=== PATIENT | female | born 1960 | race Caucasian/White ===

== ENCOUNTER 2016-11-10 15:46 | Emergency (ER) | payer BC ==
--- NOTE | ~2016-11-10 | ER ---
PATIENT'S NAME: YANETH PAVON [facility] AGE: 55 Y [address] ROOM: [place] [address] LOCATION: ED ADMIT DATE: 11/10/2016 ER/Outpatient Report DISCHARGE DATE: 11/10/2016 FAMILY PHYSICIAN: Fernando Culver MD ATTENDING PHYSICIAN: Coretta Zaidi Time of arrival: 1546. Time seen: 1630. IDENTIFICATION: A 55-year-old female. CHIEF COMPLAINT: Nausea and dizziness. HISTORY OF PRESENT ILLNESS: The patient was at [facility] and she felt some cramping in her abdomen, went to the bathroom, had diarrhea then when she got home she had another episode and was on the toilet and had a syncopal episode. She did hit her head, left parietal scalp and her glasses cut the bridge of her nose. She is complaining little bit of a headache and just feeling kind of dizzy and still little nausea and discomfort in her abdomen. She has had no vomiting. Tetanus is current within three years PAST MEDICAL HISTORY: ALLERGIES: TO ERYTHROMYCIN. CURRENT MEDICATIONS: 1. Turmeric. 2. Ospina extract. 3. Fish oil. 4. Flaxseed oil. 5. Vitamin D. MEDICAL PROBLEMS: Osteoarthritis followed by Dr. De Dios in [place]. SOCIAL HISTORY: The patient lives here in [place], works at a bakery. Tobacco use, denies. Alcohol use, rarely. Drug use, denies. REVIEW OF SYSTEMS: All systems reviewed and negative other than what is noted in the HPI. She is PATIENT'S NAME: YANETH PAVON [facility] AGE: 55 Y [address] ROOM: [place] [address] LOCATION: ED ADMIT DATE: 11/10/2016 ER/Outpatient Report DISCHARGE DATE: 11/10/2016 FAMILY PHYSICIAN: Fernando Culver MD ATTENDING PHYSICIAN: Coretta Zaidi no longer having periods. PAST SURGICAL HISTORY: Cholecystectomy and section. FAMILY HISTORY: No family history of premature coronary artery disease. No family history of sudden cardiac . PHYSICAL EXAMINATION: VITAL SIGNS: Height 5 feet 1 inch and weight 85.4 kg. Blood pressure 140/77, pulse 69, respirations 16, temperature 96.6, and saturations 99%. GENERAL: A 55-year-old female, in no acute distress. HEENT: Head: Normocephalic. Ears: TMs translucent both ears. Eyes: Pupils equal and reactive to light and accommodation. Extraocular movements intact. Nose: Mucosa pink. No lesions. Mouth: No lesions. She has no malocclusion of her teeth. Oropharynx is benign. Mucous membranes are moist. NECK: Supple. No lymphadenopathy. She does have a little bit of tenderness to her cervical spine. She has a palpable hematoma to her left parietal scalp. She has a superficial laceration across the bridge of her nose, not requiring any sutures. LUNGS: Clear to auscultation. HEART: Regular rate and rhythm. No murmur, rub, or gallop. ABDOMEN: Bowel sounds present. Soft, nondistended, minimally tender to deep palpation. No rebound or guarding. SKIN: [place], warm, and dry. No lesions or rashes noted. The patient has some old bruises on her lower extremities and then one on her right upper extremity. She said those are not from today and then the superficial laceration on the bridge of her nose. NEURO: The patient is alert and oriented x4. Cranial nerves 2 through 12 grossly intact. Motor strength 5/5 throughout. Sensation is intact to light touch. EXTREMITIES: She just recently had epidural steroid injections of both of her knees and her thumbs per Dr. De Dios in [place]. DIAGNOSTIC DATA: EKG sinus bradycardia at 55 beats per minute. No acute ST elevation or depression. LABORATORY DATA: Chemistry panel unremarkable. Cardiac enzymes, amylase, lipase, magnesium normal. CBC is normal. UA is unremarkable. The patient is receiving 1 L of IV fluids. Zofran 4 mg IV. She is feeling better. We will finish her fluid bolus if she continues to feel well, she will be discharged home. PATIENT'S NAME: YANETH PAVON [facility] AGE: 55 Y [address] ROOM: [place], [place] [address] LOCATION: [facility] ADMIT DATE: 11/10/2016 ER/Outpatient Report DISCHARGE DATE: 11/10/2016 FAMILY PHYSICIAN: Fernando Culver MD ATTENDING PHYSICIAN: Coretta Zaidi IMPRESSION: 1. Gastroenteritis. 2. Vasovagal syncope. PLAN: Slow cautious movements. Diet as tolerated. Zofran 4 mg ODT one p.o. q.6 hours p.r.n. nausea, dispensed 4 with 0 refills. Follow up with Dr. Culver in next week. Follow up sooner if any problems or concerns. Head CT was negative. Cervical spine CT, mild degenerative changes, no fracture. Facial bone CT, chronic sinusitis nothing acute per Dr. Morrow, radiologist. CORETTA ZAIDI MD CAR/modl /[id number] d: 11/10/162132 t: 11/12/162043, OUTPATIENT REPORT
[2016-11-10 16:56] LABS: BASOPHIL % 0.2 %; HEMATOCRIT 40.5 % (33.0-46.0); HEMOGLOBIN 13.3 g/dL (10.0-15.0); IMMATURE GRANULOCYTE # 0.1 K/uL (0.0-0.3); IMMATURE GRANULOCYTE % 0.5 %; LYMPHOCYTE % 21.3 %; MCH 29.9 pg (27.0-34.0); MCHC 32.8 gm/dL (32.0-36.5); MONOCYTE # 0.8 K/uL (0.0-1.0); MONOCYTE % 8.1 %; NEUTROPHIL # (ANC) 6.5 K/uL (1.8-7.8); NEUTROPHIL % 69.9 %; NRBC % 0 /100WBC (0-0.00); PLATELET COUNT 258 K/uL (150-450); RBC 4.45 M/uL (3.50-5.50); RDW-CV 13.9 % (11.9-14.6); WBC 9.3 K/uL (4.0-11.0)
[2016-11-10 17:09] LABS: INR - (THERAPEUTIC) 0.93 (0.92-1.07); PROTIME 9.8 SECONDS (9.8-11.4); PTT 20 SECONDS (25-32)
[2016-11-10 17:16] LABS: ALBUMIN 3.4 gm/dL (3.5-5.0); ALK PHOS 55 IU/L (33-138); ALT 31 IU/L (12-78); AST 19 IU/L (10-40); BLOOD UREA NITROGEN 22 mg/dL (6-24); CALCIUM 8.6 mg/dL (8.5-10.5); CHLORIDE 105 mMol/L (96-110); CO2 27 mMol/L (22-32); CPK 57 IU/L (21-215); CREATININE 0.8 mg/dL (0.5-1.1); MAGNESIUM 2.3 mg/dL (1.8-2.6); SODIUM 140 mMol/L (135-145); TOTAL BILIRUBIN 0.4 mg/dL (0.0-1.5); TOTAL PROTEIN 6.8 g/dL (6.0-8.4)
[2016-11-10 17:27] LABS: BILIRUBIN URINE NEGATIVE (NEGATIVE); BLOOD URINE 10 /UL (NEGATIVE); COLOR URINE YELLOW (YELLOW); GLUCOSE URINE NEGATIVE (NEGATIVE); KETONE URINE 15 mg/dL (NEGATIVE); LEUKOCYTES URINE NEGATIVE /UL (NEGATIVE); NITRITE URINE NEGATIVE (NEGATIVE); PROTEIN URINE NEGATIVE (NEGATIVE); SPEC GRAVITY URINE 1.025 (1.003-1.035); TURBIDITY URINE 2+ (CLEAR); UROBILINOGEN URINE 1 mg/dL (NORMAL)
[2016-11-10 17:35] LABS: WBC URINE NEGATIVE #/HPF (NEGATIVE)
[2016-11-10 17:36] LABS: AMORPHOUS URINE 1+ (NEGATIVE); BACTERIA URINE NEGATIVE (NEGATIVE); CRYSTALS URINE CALCIUM OXALATE (NEGATIVE); EPITHELIAL URINE 0-2 #/HPF (NEGATIVE); MUCUS URINE 1+ (NEGATIVE); RBC URINE RARE #/HPF (NEGATIVE)
== END 2016-11-10 18:56 | disposition disaster alternative care site (69) ==
LOC: GMED 15:46
PROVIDERS: Family Medicine
DX: R55 Syncope and collapse (principal); K52.9 Noninfective gastroenteritis and colitis, unspecified; R51 Headache; R00.1 Bradycardia, unspecified; Z88.1 Allergy status to other antibiotic agents; Z90.49 Acquired absence of other specified parts of digestive tract; Z98.890 Other specified postprocedural states
CPT/HCPCS: J2001; J2405; J7030